=== PATIENT | female | born 1955 | race Caucasian/White ===

== ENCOUNTER 2017-03-05 08:51 | Emergency (ER) | payer BC ==
[2017-03-05 09:39] VITALS: BP 174/85
--- NOTE | 2017-03-05 09:54 | UC ---
Yared Garcia,Russell, scribed for Sushma Campuzano MD on 03/05/17 at 0939 . Lower Extremity/Ankle HPI - HPI Summary HPI Summary: This 62 y/o female presents to [facility] for swelling of LLE digits and forefoot since 2 days ago. Positive for throbbing/tight pain and redness at the area noted since a day ago. Pt was walking on [address] when she had sharp pain without any bleeding noted 2 days ago. Pt states that she is unsure of any possible trauma, but suspects insect bite or splinter. Epsom salt makes it better. PMHx includes COPD with rare use of inhaler, Breast CA s/p chemo and left lumpectomy 13 years ago, ovarian cyst, lyme disease 5 years ago, and oophorectomy. Negative PMHx of DVT or peripheral vascular disease. Pt is ~40 years daily smoker. Primary care involves Panda Morris NP. Vital signs reviewed. Allergies information reviewed and confirmed. Plan of care involving abx treatment and continued soaking with epsom salt is discussed with pt, and she is agreeable. 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 Other GI/ History: Ovarian cyst Cancer History: Breast Cancer - s/p chemo and lumpectomy - Surgical History Surgical History: Yes Surgery Procedure, Year, and Place: LEFT LUMPECTOMY - Family History Known Family History: Positive: Cardiac Disease - mother with DE, age 69 - Social History Occupation: Unemployed Lives: Alone Alcohol Use: None Substance Use Type: None Smoking Status (MU): Heavy Every Day Tobacco Smoker - 40 years Review of Systems Constitutional: Negative Skin: Other - swelling and erythema of LLE digits 2 to 3 ENT: Negative Respiratory: Negative Cardiovascular: Negative Gastrointestinal: Negative Genitourinary: Negative Motor: Negative Neurovascular: Negative Musculoskeletal: Negative Neurological: Negative Psychological: Negative All Other Systems Reviewed And Are Negative: Yes Physical Exam Triage Information Reviewed: Yes Appearance: Well-Appearing, Pain Distress - mild to moderate Vital Signs: Initial Vital Signs Temp 98.0 F 03/05/17 09:32 Pulse 84 03/05/17 09:32 Resp 16 03/05/17 09:32 BP 174/85 03/05/17 09:32 Pulse Ox 99 03/05/17 09:32 Vital Signs Reviewed: Yes Eyes: Positive: Conjunctiva Clear Neck exam: Normal Respiratory: Positive: Lungs clear, Normal breath sounds Cardiovascular: Positive: RRR, No Murmur Musculoskeletal Exam: Normal Psychological Exam: Normal Skin Exam: Other - left forefoot with diffuse swelling and erythema over the digits. Digits 2, 3 and 4 with tense swelling and erythema. Inspection shows no entry point of foreigh body on plantar surface of left second digit, which is area of focal tenderness. Lower Extremity Course/Dx - Course Course Of Treatment: keflex for suspected cellulitis secondary to sting left foot. - Differential Dx/Diagnosis Differential Diagnosis/HQI/PQRI: Cellulitis, Contusion, Other - reaction to bite Provider Diagnoses: cellulitis left foot. Discharge - Discharge Plan Condition: Stable Disposition: HOME Prescriptions: Cephalexin CAP* [Keflex 500 CAP*] 500 mg PO QID #28 cap Patient Education Materials: Cellulitis (ED) Referrals: Panda Morris, [facility] [Primary Care Provider] - Additional Instructions: Ensure that you keep your foot elevated today, and avoid excess activity. Soak the foot in hot water adn Epsom salts for 10 minutes every 3 to 4 hours. There is no visible evidence of foreign body. You can also use benadryl 25mg for swelling and reaction to possible sting. The documentation as recorded by the Yared damico Soohyun accurately reflects the service I personally performed and the decisions made by me, Sushma Campuzano MD.
== END 2017-03-05 09:58 | disposition home or self-care (01) ==
LOC: UCEAST 08:51
DX: L03.116 Cellulitis of left lower limb (principal); F10.21 Alcohol dependence, in remission; J44.9 Chronic obstructive pulmonary disease, unspecified; Z72.0 Tobacco use
CPT/HCPCS: 99212; G0463

== ENCOUNTER 2020-11-18 07:31 | Inpatient (IN) ==
[2020-11-18 08:32] LABS: ABS Basophils 0.1 10^3/ul (0-0.2); ABS Eosinophils 0.1 10^3/ul (0-0.6); ABS Lymphocytes 2.1 10^3/ul (1.0-4.8); ABS Monocytes 0.6 10^3/ul (0-0.8); Hematocrit 40 % (35-47); Hemoglobin 13.6 g/dL (12.0-16.0); Lymphocyte % 20.7 %; Mean Corpuscular HGB Conc 34 g/dL (31-36); Mean Corpuscular Hemoglobin 31 pg (27-31); Mean Corpuscular Volume 91 fL (80-97); Platelet Count 300 10^3/uL (150-450); Red Blood Count 4.46 10^6 /uL (3.70-4.87); Red Cell Distribution Width 14 % (10-15); White Blood Count 9.9 10^3/uL (3.5-10.8)
[2020-11-18 08:39] LABS: INR 1.04 (0.82-1.09)
[2020-11-18] MEDS ORDERED: Iodixanol (CONTRAST) 320 MG/ML 100 ML SDV IV ONE (08:42)
[2020-11-18 08:47] LABS: Albumin 4.2 g/dL (3.2-5.2); Albumin/Globulin Ratio 1.6 (1-3); BUN/Creatinine Ratio 13.1 (8-20); Calcium 9.8 mg/dL (8.6-10.3); EGFR African American 81.8 (>60); EGFR Non-African American 67.6 (>60); Globulin 2.6 g/dL (2-4); Potassium 4.3 mmol/L (3.5-5.0); Total Bilirubin 0.3 mg/dL (0.2-1.0); Total Protein 6.8 g/dL (6.4-8.9)
[2020-11-18] MEDS ORDERED: Nicotine PATCH 14 MG/24 HR PATCH TRANSDERM ONE (09:49)
[2020-11-18 10:21] LABS: Urine Appearance Cloudy; Urine Bilirubin Negative (Negative); Urine Blood 1+ (Negative); Urine Color Yellow; Urine Glucose Negative (Negative); Urine Ketones Negative (Negative); Urine Nitrite Negative (Negative); Urine Protein Negative (Negative); Urine Specific Gravity 1.029 (1.010-1.030); Urine Urobilinogen Negative (Negative)
[2020-11-18 10:31] LABS: Urine Bacteria 1+ (Absent); Urine Red Blood Cell 3+(>10/hpf) (Absent); Urine Squamous Epithelial Cell Present (Absent); Urine White Blood Cell Trace(0-5/hpf) (Absent)
[2020-11-18 14:32] LABS: HDL Cholesterol 39.5 mg/dL
[2020-11-18] MEDS ORDERED: Enoxaparin 40 MG/0.4 ML SYR SUBCUT SCH (15:00)
[2020-11-18] MEDS ORDERED: Albuterol HFA INHALER 8 gm MDI INH PRN (15:40)
[2020-11-18] MEDS: Nicotine PATCH 21 MG/24 HR PATCH TRANSDERM SCH (17:42)
[2020-11-19] MEDS ORDERED: Aspirin EC 81 mg TAB.EC (enteric coated) PO SCH (09:00)
[2020-11-19] MEDS ORDERED: DULoxetine DR 60 mg CAP PO SCH (09:00)
[2020-11-19] MEDS: Nicotine PATCH 21 MG/24 HR PATCH TRANSDERM SCH (09:33)
[2020-11-19 11:39] VITALS: BP 155/68
== END 2020-11-19 13:50 | disposition home or self-care (01) | DRG 66 ==
LOC: ED 07:31 → MEDTELE 14:36
PROVIDERS: ADMIT Internal Medicine; ATTEND Internal Medicine